=== PATIENT | female | born 1950 ===

== ENCOUNTER 2020-10-02 12:45 | Inpatient (IN) | payer OTHER ==
[~2020-10-02] VITALS: Ht 160 cm; Wt 90.7 kg
[2020-10-02] MEDS ORDERED: LASIX20 MG PO (15:38)
[2020-10-02] MEDS ORDERED: TOPROL XL25 M1 PO (15:38)
[2020-10-02] MEDS ORDERED: RESTORIL15 MG PO (15:39)
[2020-10-02] MEDS ORDERED: GLIPIZIDE XL2.5 MG PO (15:39)
[2020-10-02] MEDS ORDERED: ENALAPRIL MALEA10 MG PO (15:39)
[2020-10-02] MEDS ORDERED: LEVOTHYROXINE50 MC1 PO (15:40)
[2020-10-02] MEDS ORDERED: ZYRTEC10 M3 PO (15:40)
[2020-10-03] MEDS ORDERED: EZETIMIBE10 MG (11:11)
[2020-10-03] MEDS ORDERED: MEGESTROL ACETA40 MG (11:11)
[2020-10-03] MEDS ORDERED: FAMOTIDINE20 MG (11:12)
[2020-10-03] MEDS ORDERED: DICLOFENAC POTA50 MG (11:12)
[2020-10-03] MEDS ORDERED: DICLOFENAC SOD100 GM (11:12)
[2020-10-03] MEDS ORDERED: ST. JOSEPH ASPI81 M2 (11:12)
[2020-10-03] MEDS ORDERED: METOPROLOL TAR100 MG (11:12)
== END 2020-10-05 13:19 | disposition home or self-care (01) | DRG 741 ==
LOC: O/R 10-03 06:00 → SURG-SUITE 10-03 06:00 → OB/GYN 10-03 08:45 → SURG-SUITE 10-03 14:35
PROVIDERS: ADMIT Specialist; ATTEND Specialist
PROC: 0UT24ZZ Resection of Bilateral Ovaries, Percutaneous Endoscopic Approach (ICD-10-PCS; 2020-10-03)
PROC: 0UT74ZZ Resection of Bilateral Fallopian Tubes, Percutaneous Endoscopic Approach (ICD-10-PCS; 2020-10-03)
PROC: 07BC4ZZ Excision of Pelvis Lymphatic, Percutaneous Endoscopic Approach (ICD-10-PCS; 2020-10-03)
PROC: 0UT94ZZ Resection of Uterus, Percutaneous Endoscopic Approach (ICD-10-PCS; principal; 2020-10-03 08:45)
DX: C54.1 Malignant neoplasm of endometrium (principal); N80.0 Endometriosis of uterus; N95.0 Postmenopausal bleeding; E11.9 Type 2 diabetes mellitus without complications; E03.8 Other specified hypothyroidism

== ENCOUNTER 2021-08-14 07:15 | Inpatient (IN) | payer OTHER ==
[~2021-08-14] VITALS: Ht 160 cm; Wt 87.1 kg
[~2021-08-14 07:15] MED LIST: DICLOFENAC POTA50 MG; DICLOFENAC SOD100 GM; ENALAPRIL MALEA10 MG PO; EZETIMIBE10 MG; FAMOTIDINE20 MG; GLIPIZIDE XL2.5 MG PO; LASIX20 MG PO; LEVOTHYROXINE50 MC1 PO; MEGESTROL ACETA40 MG; METOPROLOL TAR100 MG; RESTORIL15 MG PO; ST. JOSEPH ASPI81 M2; TOPROL XL25 M1 PO; ZYRTEC10 M3 PO
[2021-08-14] MEDS ORDERED: RESTORIL PO (08:29)
[2021-08-14] MEDS ORDERED: GLIPIZIDE XL2.5 MG PO (13:17)
[2021-08-14] MEDS ORDERED: GLIPIZIDE XL5 MG PO (13:18)
[2021-08-19] MEDS ORDERED: DICLOFENAC POTA50 MG (07:56)
[2021-08-19] MEDS ORDERED: SIMVASTATIN20 MG (07:56)
[2021-08-19] MEDS ORDERED: FAMOTIDINE20 MG (07:56)
[2021-08-22] MEDS ORDERED: PERCOCET 5-3251 EACH PO (07:18)
[2021-08-22] MEDS ORDERED: CIPRO500 MG PO (07:18)
[2021-08-22] MEDS ORDERED: ELIQUIS2.5 MG PO (07:18)
== END 2021-08-22 12:32 | DRG 470 ==
LOC: O/R 08-19 06:48 → SURG 08-19 06:48
PROVIDERS: ADMIT Orthopaedic Surgery; ATTEND Orthopaedic Surgery
PROC: 0SRD0J9 Replacement of Left Knee Joint with Synthetic Substitute, Cemented, Open Approach (ICD-10-PCS; principal; 2021-08-19 12:45)
DX: M17.12 Unilateral primary osteoarthritis, left knee (principal); D62 Acute posthemorrhagic anemia; M22.12 Recurrent subluxation of patella, left knee; Z20.822 Contact with and (suspected) exposure to COVID-19; I10 Essential (primary) hypertension; E11.9 Type 2 diabetes mellitus without complications